=== PATIENT | female | born 1970 | race African-American/Black ===

== ENCOUNTER 2016-03-25 01:23 | Inpatient (IN) ==
[2016-03-25] MEDS ORDERED: METOCLOPRAMIDE 10 MG/2 ML VIAL IV STA (02:10)
[2016-03-25] MEDS ORDERED: ALUM/MAG/SIMETH/LIDO VISC 1:1 30 ML BOTTLE PO STA (02:10)
[2016-03-25] MEDS ORDERED: ONDANSETRON 4 MG/2 ML VIAL IV STA (02:10)
[2016-03-25] MEDS ORDERED: PANTOPRAZOLE 40 MG VIAL IV STA (02:10)
[2016-03-25] MEDS ORDERED: SODIUM CHLORIDE 0.9% 1,000 ML IV STA ×2 (02:10→03:00)
[2016-03-25] MEDS ORDERED: PANTOPRAZOLE 40 MG VIAL IV ONE (02:17)
[2016-03-25] MEDS ORDERED: ONDANSETRON 4 MG/2 ML VIAL ONE (02:17)
[2016-03-25] MEDS ORDERED: METOCLOPRAMIDE 10 MG/2 ML VIAL ONE (02:17)
[2016-03-25] MEDS ORDERED: ALUM/MAG/SIMETH/LIDO VISC 1:1 30 ML BOTTLE PO ONE (02:17)
--- NOTE | 2016-03-25 02:27 | EKG Report ---
Stationary ECG Study [facility] ER Test Date: 03/25/2016 2:25:37 AM Pat Name: CHAPINCITO ZAMARRIPA Department: Room: Gender: F Transportation Superintendent: : 1970 Requested by: Johan Mccormack Order Number: [id number] Re MD: SERA GEORGES Intervals [place] Rate: 58 P: 55 MI: 176 QRS: 0 QRSD: 130 T: 31 QT: 475 QTc: 473 Interpretive Statements SINUS RHYTHM NON-SPECIFIC INTRAVENTRICULAR CONDUCTION DELAY MODERATE VOLTAGE CRITERIA FOR LVH, CONSIDER NORMAL VARIANT PROLONGED QT INTERVAL Electronically Signed On 03-25-16 04:23:31 BACK LINE COOK by SERA GEORGES [email or web address]
[2016-03-25 02:29] LABS: Basophils % 0.1 % (0.0-0.8); Eosinophils # 0.2 10*3/uL (0.0-0.87); Eosinophils % 1.9 % (0.00-10.9); Hematocrit 28.8 VOL% (35.7-47.0); Hemoglobin 10.2 GM/DL (12.0-16.0); Immature Granulocytes % 1.9 %; Immature Granulocytes Absolute 0.24 #; Lymphocytes # 3.2 10*3/uL (1.4-4.0); Lymphocytes % 25.5 % (21.3-54.2); Mean Corpuscular HGB Conc 35.4 GM/DL (32-36); Mean Corpuscular Hemoglobin 33 PG (27-34); Mean Corpuscular Volume 94.1 FL (87-102); Mean Platelet Volume 9.9 FL (9.6-12.0); Monocytes # 0.4 10*3/uL (0.11-0.8); Monocytes % 3.5 % (1.7-12.7); NRBC # 0.05 10*3/uL; Neutrophils # 8.4 10*3/uL (1.4-7.4); Neutrophils % 67.1 % (38.7-73.9); Platelet Count 296 10*3/uL (130-400); Red Blood Count 3.06 10*6/uL (3.8-5.5); Red Cell Distribution Width 18.6 % (9.3-17.3); White Blood Count 12.5 10*3/uL (4.5-13.71)
--- NOTE | 2016-03-25 02:44 | Emergency Department Note ---
Yg Boyd Emily, am scribing for, and in the presence of, Johan Wiley MD 02: 15. Inez Boyd Charles R, MD, personally performed the services described in this documentation, ascribed by Ethel Ronquillo in my presence, and it is both accurate and complete . Arrival - Arrival Chief Complaint: Nausea/Vomiting/Diarrhea Stated Complaint: WEAK/NAUSEA/VOMITING ED Nursing Triage Note: pt present to triage via w/c with N/V and weakness for more than a week. pt denies fever and diarrhea and abd pain. Mode of Arrival: Wheelchair Limitations: No Limitations Source: Patient, Significant other - History of Present Illness HPI Narrative: Pt is a 45 y/o female who came to ED with c/o N/V and abdomen pain that has been ongoing for a month. Pt reports not able to keep any food or fluid down every time small meal or particle of food she eats. Pt describes abdomen pain as "funny feeling" and is poor historian. Spouse notes she has hx of seizures, in which last grandmal was in September 2015 and medications were adjusted. PMHx of depression and potassium deficiency. PCP is Dr. Barriga but has not followed up regularly. No other complaint/pain in ED. Onset (ago): week(s) Consistency: constant Severity: mild Severity scale (1-10): 2 Quality: aching Date of Last Menstrual Period: hyst Allergies/Adverse Reactions: Allergies Allergy/AdvReac Type Severity Reaction Status Date / Time nitrofurantoin Allergy RASH Verified 03/25/16 01:33 [From Macrobid] Home Medications: Home Medications Medication Instructions Recorded Confirmed Type ARIPiprazole [Abilify] 7.5 mg PO BEDTIME 03/25/16 03/25/16 History Lisinopril [Zestril] 40 mg PO DAILY 03/25/16 03/25/16 History Potassium Chloride [Klor-Con M20] 20 meq PO BID 03/25/16 03/25/16 History Sertraline [Zoloft] 25 mg PO DAILY 03/25/16 03/25/16 History clonazePAM [Clonazepam] 0.5 mg PO BID 03/25/16 03/25/16 History hydroCHLOROthiazide 25 mg PO DAILY 03/25/16 03/25/16 History [Hydrochlorothiazide] levETIRAcetam TAB [Keppra Tab] 500 mg PO BID 03/25/16 03/25/16 History traZODone [Desyrel] 150 mg PO BEDTIME 03/25/16 03/25/16 History Review of System - Review of System 12 point system: reviewed and no additional remarkable complaints except as stated - Review of System Constitutional: Present: weakness. Absent: chills, fever Head/Ears/Nose/Throat: Absent: nasal drainage, sore throat Respiratory: Absent: respiratory distress Cardiovascular: Absent: chest pain Gastrointestinal: Present: abdominal pain, nausea, vomiting (with every meal). Absent: diarrhea Musculoskeletal: Absent: arm pain, back pain, leg pain, neck pain Medical,Surgical,& Family Hx - Medical History Cardio: History of: Hypertension Neurology: History of: Seizures - Surgical History Reproductive Surgeries: Surgical HX of;: Hysterectomy - Social History Smoking Status: Never smoker Frequency of Alcohol Use: None Type of Drug Use: None Exam Vital Signs: Vital Signs Temperature 97.7 F 03/25/16 01:26 Pulse Rate 64 03/25/16 01:26 Respiratory Rate 16 03/25/16 01:26 Blood Pressure 153/100 03/25/16 01:26 O2 Sat by Pulse Oximetry 100 03/25/16 01:26 - General General appearance: alert, in no apparent distress - Head Head exam: Present: atraumatic, normocephalic - Eye Eye exam: Present: PERRL, EOMI - ENT ENT exam: Present: mucous membranes moist. Absent: mucous membranes dry - Neck Neck exam: Present: full ROM. Absent: tenderness - Chest Chest inspection: Present: symmetric chest wall rise. Absent: tenderness - Respiratory Respiratory exam: Present: normal lung sounds bilaterally. Absent: respiratory distress - Cardiovascular Cardiovascular exam: Present: regular rate, normal rhythm, normal heart sounds - Abdominal Exam Abdominal exam: Present: soft, tenderness (mild epigastric), hypoactive bowel sounds. Absent: distention, guarding, rebound - Extremities Exam Extremities exam: Present: full ROM. Absent: tenderness, pedal edema - Back Exam Back exam: Present: full ROM. Absent: tenderness - Neurological Exam Neurological exam: Present: alert, oriented X3, CN II-XII intact. Absent: motor sensory deficit - Psychiatric Psychiatric exam: Present: normal affect, normal mood - Skin Skin exam: Present: warm, dry Course - Consultations Consultation #1: Dr. Callejas will admit patient Time: 03:11 Results - Labs CBC & BMP: 03/25/16 01:43 03/25/16 01:43 Lab Results: I have reviewed the patients labs Labs: Laboratory Tests 03/25/16 01:43 RBC 3.06 L Hgb 10.2 L Hct 28.8 L RDW 18.6 H Neut # (Auto) 8.4 H Critical Care Time Critical Care Time: Yes Total Critical Care Time: 60 Disposition Clinical Impression: Gastroenteritis, Dehydration, Hypokalemia due to inadequate potassium intake, Intractable nausea and vomiting Case discussed with: patient, patient's family Disposition: Still a Patient Condition: Stable Time of Disposition: 03:11
[2016-03-25 02:46] LABS: Albumin 3.6 G/DL (3.4-5.0); Alkaline Phosphatase 100 U/L (45-117); Aspartate Amino Transferase 19 U/L (0-37); Calcium 8.8 MG/DL (8.5-10.1); Total Protein 7.5 G/DL (6.4-8.3)
[2016-03-25 02:47] LABS: Amylase 51 U/L (25-115); Blood Urea Nitrogen 9 MG/DL (7-18); Glucose 98 MG/DL (74-106); Magnesium 1.9 MG/DL (1.8-2.4); Osmolality,Calculated 288.6 MOS/KG (273-304); Potassium 2.3 MMOL/L (3.5-5.1); Sodium 146 MMOL/L (136-145); Troponin I Only < 0.015 NG/ML (0.00-0.045)
[2016-03-25 02:53] LABS: Alanine Aminotransferase 12 U/L (13-56)
[2016-03-25] MEDS ORDERED: POTASSIUM CHLORIDE 20 MEQ TABLET PO STA ×2 (02:57)
[2016-03-25] MEDS ORDERED: POTASSIUM CHLORIDE 20 MEQ PACK ONE (03:00)
[2016-03-25] MEDS ORDERED: SODIUM CHLOR 0.9% KCL 20 MEQ 20 MEQ/1,000 ML BAG IV SCH ×2 (03:00→05:16)
[2016-03-25] MEDS ORDERED: POTASSIUM CHLORIDE 20 MEQ TABLET PO ONE (03:01)
[2016-03-25] MEDS ORDERED: SODIUM CHLOR 0.9% KCL 20 MEQ 20 MEQ/1,000 ML BAG IV ONE (03:04)
--- NOTE | 2016-03-25 03:26 | Hospitalist History & Physical ---
Assessment and Plan (1) Hypokalemia due to loss of potassium Status: Acute Current Visit: Yes (2) Dehydration Status: Acute Current Visit: Yes (3) Gastroenteritis Status: Acute Current Visit: Yes (4) Intractable nausea and vomiting Status: Acute Assessment and plan: Our plan for this patient #1 admit the patient our service #2 replete her potassium #3 consult GI #4 continue her home medications as appropriate #5 check a potassium in 4 hours Current Visit: Yes History of Present Illness Chief complaint: intractable nausea and vomiting History of present illness: Ms. Cortes is a 45 year old female who presents to our hospital with nausea and vomiting 3 weeks. Patient said prior to that 3 weeks ago she did not have this problem. Her 's report that it started after she ate something over her mother's house he could eat anything down. Patient was noted today and has been urged her that she needed to come to the hospital. Patient has a issue with hypokalemia in the past and is on potassium supplements. She was found to be severely hypokalemic in the emergency room. Patient reports that she can swallow some liquids in small bites of food that when she tries normal portions they come right back up. She has a funny sensation in her epigastric area although is really not significantly tender. Home Medications Medication Instructions Recorded Confirmed Type ARIPiprazole [Abilify] 7.5 mg PO BEDTIME 03/25/16 03/25/16 History Lisinopril [Zestril] 40 mg PO DAILY 03/25/16 03/25/16 History Potassium Chloride [Klor-Con M20] 20 meq PO BID 03/25/16 03/25/16 History Sertraline [Zoloft] 25 mg PO DAILY 03/25/16 03/25/16 History clonazePAM [Clonazepam] 0.5 mg PO BID 03/25/16 03/25/16 History hydroCHLOROthiazide 25 mg PO DAILY 03/25/16 03/25/16 History [Hydrochlorothiazide] levETIRAcetam TAB [Keppra Tab] 500 mg PO BID 03/25/16 03/25/16 History traZODone [Desyrel] 150 mg PO BEDTIME 03/25/16 03/25/16 History Allergies Allergy/AdvReac Type Severity Reaction Status Date / Time nitrofurantoin Allergy RASH Verified 03/25/16 01:33 [From Macrobid] Medical,Surgical,& Family Hx - Medical History Cardio: History of: Hypertension Neurology: History of: Seizures - Surgical History Reproductive Surgeries: Surgical HX of;: Hysterectomy - Family History Family History: noncontributory - Social History Smoking Status: Never smoker Frequency of Alcohol Use: None Type of Drug Use: None 12 point system: reviewed and no additional remarkable complaints except as stated Exam - Constitutional Vitals: Period Temp Pulse Resp BP Sys/Richardson Pulse Ox Last 24 Hr 97.7 F 64 16 153/100 100 - General General appearance: alert, in no apparent distress - Head Head exam: Present: atraumatic, normocephalic - Eye Eye exam: Present: PERRL, EOMI - ENT ENT exam: Present: mucous membranes moist. Absent: mucous membranes dry - Neck Neck exam: Present: full ROM. Absent: tenderness - Chest Chest inspection: Present: symmetric chest wall rise. Absent: tenderness - Respiratory Respiratory exam: Present: normal lung sounds bilaterally. Absent: respiratory distress - Cardiovascular Cardiovascular exam: Present: regular rate, normal rhythm, normal heart sounds - Abdominal Exam Abdominal exam: Present: soft, tenderness (mild epigastric), hypoactive bowel sounds. Absent: distention, guarding, rebound - Extremities Exam Extremities exam: Present: full ROM. Absent: tenderness, pedal edema - Back Exam Back exam: Present: full ROM. Absent: tenderness - Neurological Exam Neurological exam: Present: alert, oriented X3, CN II-XII intact. Absent: motor sensory deficit - Psychiatric Psychiatric exam: Present: normal affect, normal mood - Skin Skin exam: Present: warm, dry Results - Labs CBC & BMP: 03/25/16 01:43 03/25/16 01:43
[2016-03-25 03:43] LABS: Apearance,Urine CLEAR (Clear); Bilirubin,Urine Negative (Negative); Blood, Urine Negative (Negative); Glucose,Urine (UA) Negative (Negative); Ketones,Urine Negative (Negative); Mucus,Urine Occasional /LPF (Occasional); Nitrite,Urine Negative (Negative); Protein,Urine Negative; Squamous Epithelial Cell,Urine Occasional /HPF (0-10); Urine Color Yellow (Yellow); Urine Specific Gravity 1.006 (1.001-1.035); Urine Urobilinogen < 2.0 EU/DL (0.2-1.0); WBC,Urine <1 /HPF (0-6)
[2016-03-25] MEDS ORDERED: MORPHINE 2 MG/1 ML SYRINGE IV PRN (05:16)
[2016-03-25] MEDS ORDERED: PROMETHAZINE 25 MG/1 ML VIAL IM PRN (05:16)
--- NOTE | 2016-03-25 07:37 | XRay Report ---
XR chest 1V portable Indication: Abdominal pain. Comparison: None. Technique: Portable AP chest was performed. Findings: Heart size, mediastinal contour, and hilar structures demonstrate no evidence of acute pathology. Lungs are clear. Bones and soft tissues demonstrate no evidence of acute pathology. Impression: 1. No evidence of acute pathology. 03/25/2016 7:34 AM PROCEDURE INTERPRETED AT [facility] DEPARTMENT OF RADIOLOGY Final Report Signed by: Dr. Dell Rios
--- NOTE | 2016-03-25 07:37 | XRay Report ---
XR abdomen 2V Indication: Abdominal pain. Comparison: None. Technique: Flat and erect images of the abdomen were performed. Findings: Lung bases are clear. No organomegaly suggested. The bowel gas pattern demonstrates no significant abnormality. Bony structures as well as soft tissues demonstrate no evidence of significant pathology. Impression: 1. No active process is suggested within the abdomen or pelvis. 03/25/2016 7:34 AM PROCEDURE INTERPRETED AT [facility] [place] DEPARTMENT OF RADIOLOGY Final Report Signed by: Dr. Dell Rios
[2016-03-25] MEDS: levETIRAcetam 500 MG TABLET PO SCH ×2 (08:33→21:31)
[2016-03-25] MEDS: LISINOPRIL 20 MG TABLET PO SCH (08:33)
[2016-03-25] MEDS: SERTRALINE 25 MG TABLET PO SCH (08:33)
[2016-03-25] MEDS: clonazePAM 0.5 MG TABLET PO SCH ×2 (08:38→21:31)
[2016-03-25] MEDS ORDERED: PANTOPRAZOLE 40 MG TABLET PO SCH (09:00)
[2016-03-25] MEDS ORDERED: POTASSIUM CHLORIDE 20 MEQ TABLET PO SCH (09:00)
[2016-03-25] MEDS ORDERED: hydroCHLOROthiazide 25 MG TABLET PO SCH (09:00)
[2016-03-25] MEDS ORDERED: METOCLOPRAMIDE 10 MG/2 ML VIAL IV PRN (10:46)
--- NOTE | 2016-03-25 10:50 | Hospitalist Progress Note ---
Assessment and Plan (1) Dehydration Status: Acute Assessment and plan: Continue IV fluids. Changed to lactated Ringer's. Current Visit: Yes (2) Intractable nausea and vomiting Status: Acute Assessment and plan: GI consult pending Add reglan Current Visit: Yes (3) Hypokalemia due to loss of potassium Status: Acute Assessment and plan: increase KCL supplement Current Visit: Yes Hospitalist: Subjective Interval history: Patient seen and examined this morning. Reports no more vomiting but has some nausea. Awaiting GI consultation. IV fluids and potassium supplements adjusted. Exam - Constitutional Vitals: Period Temp Pulse Resp BP Sys/Richardson Pulse Ox Last 24 Hr 98.6 F-98.8 F 53-57 18-20 153-168/77-104 99-100 General appearance: mild distress - Head Head exam: Present: normal inspection, normocephalic - Eye Eye exam: Present: EOMI Pupils: Present: ALLA - Respiratory Respiratory exam: Present: clear to auscultation bilaterally - Cardiovascular Cardiovascular exam: Present: regular rate and rhythm - GI/Abdominal GI/Abdominal exam: Present: normal bowel sounds, soft - Extremities Exam Extremities exam: Present: normal inspection. Absent: edema - Neurological Exam Neurological exam: Present: alert, oriented X3 - Psychiatric Psychiatric exam: Present: normal affect, normal mood - Skin Skin exam: Present: normal color, warm Results - Labs CBC & BMP: 03/25/16 01:43 03/25/16 06:58 Lab Results: I have reviewed the past 24 hour labs Specialty Discharge - Follow Up or Referrals - Discharge Medications No Action ARIPiprazole [Abilify] 7.5 mg PO BEDTIME traZODone [Desyrel] 150 mg PO BEDTIME levETIRAcetam TAB [Keppra Tab] 500 mg PO BID clonazePAM [Clonazepam] 0.5 mg PO BID Sertraline [Zoloft] 25 mg PO DAILY Potassium Chloride [Klor-Con M20] 20 meq PO BID hydroCHLOROthiazide [Hydrochlorothiazide] 25 mg PO DAILY Lisinopril [Zestril] 40 mg PO DAILY
[2016-03-25] MEDS ORDERED: POTASSIUM CHLORIDE INJ 20 MEQ in LACTATED RINGERS 1,000 ML IV SCH (11:00)
[2016-03-25] MEDS ORDERED: LACTATED RINGERS 1,000 ML IV SCH (13:00)
[2016-03-25] MEDS: POTASSIUM CHLORIDE INJ 20 MEQ in LACTATED RINGERS 1,000 ML IV SCH ×2 (14:50→21:57)
--- NOTE | 2016-03-25 15:18 | Gastrointestinal Consult Note ---
Assessment and Plan (1) Nausea and vomiting Status: Acute Assessment and plan: Nausea and vomiting may be secondary to irritation of the stomach with a previous potassium usage causing a mild gastritis. The patient does not desire any sort of endoscopic evaluation for this nor is she wish to have further evaluation with gastric emptying study look for Astra paresis. She would like some MiraLAX to help out with her chronic constipation and this may also be feeding into the nausea and vomiting. We will start the patient on Protonix 40 mg prior to suppertime in addition to MiraLAX one capful twice daily and see what this does for her underlying symptoms. She can be discharged home at any time in my opinion. Current Visit: Yes (2) Chronic constipation Status: Acute Assessment and plan: Patient states that she has 1 bowel movement every 2 weeks. Strongly suggest using MiraLAX on a daily basis, in addition to a high-fiber diet. She could be considered for a colonoscopy if she desires this in the future at any time. Current Visit: Yes (3) Gastroenteritis Status: Acute Assessment and plan: This patient seems to have a gastroenteritis by history perhaps in reaction to her mother's food exacerbated by her underlying constipation as well. No specific treatment other than rehydration and correction of her low potassium is required. Current Visit: Yes History of Present Illness Chief complaint: nausea and vomiting, hypokalemia, chronic constipation History of present illness: Ms. Cortes is a 45 year old female who gets most of her care over at [facility] and has a history of panic disorder and chronic depression as well as seizure disorder and follows up with Dr. Narvaez. She is chronically constipated and has 1 bowel movement every 2 weeks at times. She has been having problems with hypokalemia but states that she has only had nausea and vomiting this admission that this is not typical for her. He has not had any further nausea and vomiting observed here. She states that this happened after eating some food over her mother's house but that this is been going on for the last 3 weeks by report. She is not having any epigastric tenderness and is not having any fevers or chills. He is being treated mostly over [facility] but to this developing hypokalemia requiring hospitalizations and decided to give [facility] an opportunity to fix the problem. She does not have significant heartburn she has not noticed bright red blood per rectum or black tarry bowel movements. Home Medications Medication Instructions Recorded Confirmed Type ARIPiprazole [Abilify] 7.5 mg PO BEDTIME 03/25/16 03/25/16 History Lisinopril [Zestril] 40 mg PO DAILY 03/25/16 03/25/16 History Potassium Chloride [Klor-Con M20] 20 meq PO BID 03/25/16 03/25/16 History Sertraline [Zoloft] 25 mg PO DAILY 03/25/16 03/25/16 History clonazePAM [Clonazepam] 0.5 mg PO BID 03/25/16 03/25/16 History hydroCHLOROthiazide 25 mg PO DAILY 03/25/16 03/25/16 History [Hydrochlorothiazide] levETIRAcetam TAB [Keppra Tab] 500 mg PO BID 03/25/16 03/25/16 History traZODone [Desyrel] 150 mg PO BEDTIME 03/25/16 03/25/16 History Allergies Allergy/AdvReac Type Severity Reaction Status Date / Time nitrofurantoin Allergy RASH Verified 03/25/16 01:33 [From Macrobid] Medical,Surgical,& Family Hx - Medical History Cardio: History of: Hypertension Psychological: History of: Anxiety Disorders Neurology: History of: Seizures - Surgical History Abdominal Surgeries: Patient denies: Abdominal Surgery Reproductive Surgeries: Surgical HX of;: Hysterectomy - Family History Family History: Reports;: Family Diabetes (mom), Family Heart Disease (mom), Family Hypertension (mom) - Social History Smoking Status: Never smoker Frequency of Alcohol Use: None Type of Drug Use: None Review of systems: Constitutional: Denies fever, chills, but admits to recent nausea, and vomiting Eyes: Denies dry eyes, and scleral icterus HENT: Denies headaches Cardiovascular: Denies acute chest pain and claudication Respiratory: Denies shortness of breath, wheezing, and difficulty breathing, denies cough Gastrointestinal: As noted in the HPI Genitourinary: Denies dysuria and hematuria Neurologic: Denies vision loss, and loss of sensation Musculoskeletal: Denies joint swelling, joint stiffness, and muscular weakness Psychiatric: She does have depression and panic disorder but no francisco symptoms Heme-Lymph: Denies easy bruising, lymph node enlargement or tenderness, night sweats, excessive bleeding Allergies-immunologic: Denies pruritus and rhinorrhea Exam - Constitutional Vitals: Period Temp Pulse Resp BP Sys/Richardson Pulse Ox Last 24 Hr 97.4 F-98.8 F 53-57 18-20 153-168/77-104 96-100 General appearance: normal weight, no acute distress Exam: Constitutional: Well-developed, well-nourished, alert, and in no acute distress Head and face: Head: Normocephalic atraumatic Eyes: Conjunctiva without injection, no gross scleral icterus, pupils equal and round bilaterally Ears: Intact to conversation in both ears Nose: External appearance is normal, nares patent Mouth: Oral mucous membranes moist without erythema dentition noted to be without erosion Neck: Normal appearance, no masses or tenderness, trachea midline Thyroid: Gland midline and appropriate size for age Respiratory: Normal respiratory effort, clear to auscultation without wheezes, rhonchi or rales Cardiovascular: Regular rate and rhythm, normal S1, S2, the exam is without rubs, murmurs or gallops. Gastrointestinal: Nontender to palpation, normal active bowel sounds, tone normal without rigidity or guarding, no masses present, no hepatomegaly, no spleen tip felt. No rectal exam obtained. Lymphatic: Neck without adenopathy, axilla without lymphadenopathy present Musculoskeletal: Right and left lower extremities without evidence of edema Skin and subcutaneous tissue: No rashes or ulcerations noted, normal skin turgor, digits and nails without clubbing/cyanosis/deformities. Neurologic: The patient is grossly oriented to person place and time, cranial nerves show tongue movements are normal with normal tongue extrusion midline, light touch sensation is intact. Psychiatric: No hallucinations or delusions are present, does not appear depressed Results - Labs CBC & BMP: 03/25/16 01:43 03/25/16 06:58 Specialty Discharge - Follow Up or Referrals - Discharge Medications No Action ARIPiprazole [Abilify] 7.5 mg PO BEDTIME traZODone [Desyrel] 150 mg PO BEDTIME levETIRAcetam TAB [Keppra Tab] 500 mg PO BID clonazePAM [Clonazepam] 0.5 mg PO BID Sertraline [Zoloft] 25 mg PO DAILY Potassium Chloride [Klor-Con M20] 20 meq PO BID hydroCHLOROthiazide [Hydrochlorothiazide] 25 mg PO DAILY Lisinopril [Zestril] 40 mg PO DAILY
[2016-03-25] MEDS: ONDANSETRON 4 MG/2 ML VIAL IV PRN (19:46)
[2016-03-25] MEDS ORDERED: ARIPiprazole 15 MG TABLET PO SCH (21:00)
[2016-03-25] MEDS ORDERED: OXYTOCIN/LR 20 UNIT/1,000 ML BAG IV SCH (21:06)
[2016-03-25] MEDS: traZODone 50 MG TABLET PO SCH (21:30)
[2016-03-25] MEDS: POTASSIUM CHLORIDE 20 MEQ TABLET PO SCH (21:32)
[2016-03-25] MEDS: POLYETHYLENE GLYCOL POWDER 17 GM PACK PO SCH (21:39)
[2016-03-26] MEDS: ONDANSETRON 4 MG/2 ML VIAL IV PRN (02:44)
[2016-03-26 05:40] LABS: Basophils % 0.1 % (0.0-0.8); Eosinophils # 0.2 10*3/uL (0.0-0.87); Hematocrit 25.6 VOL% (35.7-47.0); Hemoglobin 8.8 GM/DL (12.0-16.0); Immature Granulocytes % 1.6 %; Immature Granulocytes Absolute 0.15 #; Lymphocytes # 2.6 10*3/uL (1.4-4.0); Lymphocytes % 28.5 % (21.3-54.2); Mean Corpuscular HGB Conc 34.4 GM/DL (32-36); Mean Corpuscular Hemoglobin 33 PG (27-34); Mean Corpuscular Volume 96.6 FL (87-102); Mean Platelet Volume 10.1 FL (9.6-12.0); Monocytes # 0.4 10*3/uL (0.11-0.8); Monocytes % 3.9 % (1.7-12.7); NRBC # 0.02 10*3/uL; Neutrophils # 5.9 10*3/uL (1.4-7.4); Neutrophils % 63.9 % (38.7-73.9); Platelet Count 237 10*3/uL (130-400); Red Blood Count 2.65 10*6/uL (3.8-5.5); White Blood Count 9.2 10*3/uL (4.5-13.71)
[2016-03-26] MEDS: POTASSIUM CHLORIDE INJ 20 MEQ in LACTATED RINGERS 1,000 ML IV SCH ×3 (05:45→21:09)
[2016-03-26 06:09] LABS: Albumin 3.2 G/DL (3.4-5.0); Magnesium 1.7 MG/DL (1.8-2.4); Osmolality,Calculated 298.7 MOS/KG (273-304); Potassium 2.8 MMOL/L (3.5-5.1); Total Protein 6.1 G/DL (6.4-8.3)
[2016-03-26] MEDS ORDERED: MAGNESIUM SULF RIDER 2 GM in PREMIX 1 EACH IV ONE (07:41)
[2016-03-26] MEDS: levETIRAcetam 500 MG TABLET PO SCH ×2 (09:51→21:05)
[2016-03-26] MEDS: PANTOPRAZOLE 40 MG TABLET PO SCH ×2 (09:52→21:05)
[2016-03-26] MEDS: ARIPiprazole 15 MG TABLET PO SCH (09:52)
[2016-03-26] MEDS: POTASSIUM CHLORIDE 20 MEQ TABLET PO SCH ×2 (09:53→21:05)
[2016-03-26] MEDS: POLYETHYLENE GLYCOL POWDER 17 GM PACK PO SCH ×2 (09:53→21:03)
[2016-03-26] MEDS: SERTRALINE 25 MG TABLET PO SCH (09:53)
[2016-03-26] MEDS: LISINOPRIL 20 MG TABLET PO SCH (09:53)
[2016-03-26] MEDS: clonazePAM 0.5 MG TABLET PO SCH ×2 (09:54→21:05)
--- NOTE | 2016-03-26 11:40 | Hospitalist Progress Note ---
Assessment and Plan (1) Dehydration Status: Acute Assessment and plan: Continue IV fluids. Changed to lactated Ringer's. Current Visit: Yes (2) Intractable nausea and vomiting Status: Acute Assessment and plan: GI consult reviewed. patient refused intervention. reglan continued. No further episodes of vomiting today. Current Visit: Yes (3) Hypokalemia due to loss of potassium Status: Acute Assessment and plan: increase KCL supplement Current Visit: Yes Hospitalist: Subjective Interval history: Patient seen and examined. GI consult reviewed. Case discussed with the patient regarding the need for endoscopy. She is afraid undergo the procedure and has elected not to. Her potassium is still low this morning despite no further nausea or vomiting. IV potassium supplementation as well as oral supplementation has been ordered. Repeat labs ordered for tomorrow. She does look better and should be able to go home tomorrow. Exam - Constitutional Vitals: Period Temp Pulse Resp BP Sys/Richardson Pulse Ox Last 24 Hr 98.3 F-98.6 F 56-62 18-24 130-179/71-93 99-100 General appearance: no acute distress - Head Head exam: Present: normal inspection, normocephalic, atraumatic - Eye Eye exam: Present: EOMI Pupils: Present: ALLA - Respiratory Respiratory exam: Present: clear to auscultation bilaterally - Cardiovascular Cardiovascular exam: Present: regular rate and rhythm - GI/Abdominal GI/Abdominal exam: Present: normal bowel sounds, soft. Absent: tenderness, rebound - Extremities Exam Extremities exam: Absent: edema - Neurological Exam Neurological exam: Present: alert, oriented X3 - Psychiatric Psychiatric exam: Present: normal affect, normal mood - Skin Skin exam: Present: normal color, warm, dry Results - Labs CBC & BMP: 03/26/16 05:06 03/26/16 05:06 Lab Results: I have reviewed the past 24 hour labs Specialty Discharge - Follow Up or Referrals - Discharge Medications No Action ARIPiprazole [Abilify] 7.5 mg PO BEDTIME traZODone [Desyrel] 150 mg PO BEDTIME levETIRAcetam TAB [Keppra Tab] 500 mg PO BID clonazePAM [Clonazepam] 0.5 mg PO BID Sertraline [Zoloft] 25 mg PO DAILY Potassium Chloride [Klor-Con M20] 20 meq PO BID hydroCHLOROthiazide [Hydrochlorothiazide] 25 mg PO DAILY Lisinopril [Zestril] 40 mg PO DAILY
[2016-03-26] MEDS: POTASSIUM CHLORIDE RIDER 10 MEQ in PREMIX 1 EACH IV SCH ×4 (12:32→16:28)
--- NOTE | 2016-03-26 16:06 | Gastrointestinal Progress Note ---
Assessment and Plan (1) Nausea and vomiting Status: Acute Assessment and plan: Nausea and vomiting may be secondary to irritation of the stomach with a previous potassium usage causing a mild gastritis. The patient does not desire any sort of endoscopic evaluation for this nor is she wish to have further evaluation with gastric emptying study look for Astra paresis. She would like some MiraLAX to help out with her chronic constipation and this may also be feeding into the nausea and vomiting. We will start the patient on Protonix 40 mg prior to suppertime in addition to MiraLAX one capful twice daily and see what this does for her underlying symptoms. She can be discharged home at any time in my opinion. 03/26/16-- patient now having bowel movements more frequently, 2 yesterday. She is taking her MiraLAX and her oral potassium as well as IV potassium. She is still refusing further workup with endoscopy or and/or gastric emptying study as appropriate. We did discuss the fact that people usually get evaluation when they come into the hospital, but she does not want to pursue endoscopic and /or further radiologic evaluation. I think the acid blocking medication will help with her underlying reflux and the MiraLAX 3 times a day should help out with her underlying constipation issues. I think she could likely be discharged at this time. I will sign off of the case as there is not much more for me to add Current Visit: Yes (2) Chronic constipation Status: Acute Assessment and plan: Patient states that she has 1 bowel movement every 2 weeks. Strongly suggest using MiraLAX on a daily basis, in addition to a high-fiber diet. She could be considered for a colonoscopy if she desires this in the future at any time. 03/26/16-- she states that the MiraLAX is already working and is ready to continue this at home. If her potassium was adequate she should be able to leave tomorrow on oral potassium, just use of daily Protonix and MiraLAX as per her hospital regimen. Thank you for this interesting consult good luck with this somewhat noncompliant young lady. Current Visit: Yes (3) Gastroenteritis Status: Acute Assessment and plan: This patient seems to have a gastroenteritis by history perhaps in reaction to her mother's food exacerbated by her underlying constipation as well. No specific treatment other than rehydration and correction of her low potassium is required. 03/26/16--see above. Current Visit: Yes Gastroenterology - PN: Subj Interval history: Eating well, 2 bowel movements yesterday, potassium is up but not to target ( above 3.0). Exam (Progress Note) - Constitutional Vitals: Period Temp Pulse Resp BP Sys/Richardson Pulse Ox Last 24 Hr 97.9 F-98.6 F 56-62 18-24 124-179/71-93 99-100 General appearance: no acute distress - Head Head exam: Present: normocephalic - Eye Eye exam: Present: EOMI - Respiratory Respiratory exam: Present: clear to auscultation bilaterally. Absent: rhonchi, stridor, wheezes - Cardiovascular Cardiovascular exam: Present: regular rate and rhythm - GI/Abdominal GI/Abdominal exam: Present: normal bowel sounds, soft. Absent: distended, guarding, tenderness, rebound - Extremities Exam Extremities exam: Present: normal inspection - Neurological Exam Neurological exam: Present: alert, oriented X3, CN II-XII intact. Absent: motor sensory deficit - Psychiatric Psychiatric exam: Present: normal affect, normal mood - Skin Skin exam: Present: warm Results - Labs CBC & BMP: 03/26/16 05:06 03/26/16 05:06 Specialty Discharge - Follow Up or Referrals - Discharge Medications No Action ARIPiprazole [Abilify] 7.5 mg PO BEDTIME traZODone [Desyrel] 150 mg PO BEDTIME levETIRAcetam TAB [Keppra Tab] 500 mg PO BID clonazePAM [Clonazepam] 0.5 mg PO BID Sertraline [Zoloft] 25 mg PO DAILY Potassium Chloride [Klor-Con M20] 20 meq PO BID hydroCHLOROthiazide [Hydrochlorothiazide] 25 mg PO DAILY Lisinopril [Zestril] 40 mg PO DAILY
[2016-03-26] MEDS: traZODone 50 MG TABLET PO SCH (21:05)
[2016-03-27 05:55] LABS: Magnesium 2.1 MG/DL (1.8-2.4); Osmolality,Calculated 297.7 MOS/KG (273-304); Potassium 2.7 MMOL/L (3.5-5.1)
[2016-03-27] MEDS: POTASSIUM CHLORIDE INJ 20 MEQ in LACTATED RINGERS 1,000 ML IV SCH ×2 (06:01→13:35)
[2016-03-27] MEDS: PANTOPRAZOLE 40 MG TABLET PO SCH (08:52)
[2016-03-27] MEDS: levETIRAcetam 500 MG TABLET PO SCH (08:52)
[2016-03-27] MEDS: POLYETHYLENE GLYCOL POWDER 17 GM PACK PO SCH (08:52)
[2016-03-27] MEDS: ARIPiprazole 15 MG TABLET PO SCH (08:52)
[2016-03-27] MEDS: POTASSIUM CHLORIDE 20 MEQ TABLET PO SCH (08:52)
[2016-03-27] MEDS: clonazePAM 0.5 MG TABLET PO SCH (08:53)
[2016-03-27] MEDS: SERTRALINE 25 MG TABLET PO SCH (08:53)
[2016-03-27] MEDS: LISINOPRIL 20 MG TABLET PO SCH (08:53)
--- NOTE | 2016-03-27 09:11 | Discharge Summary ---
Hospital Course - Hospital Course Hospital Course: Mrs. Melendez is a 45-year-old -[place] female who is admitted to the hospital with intractable nausea vomiting and hypokalemia. Her symptoms began several weeks ago. Her symptoms persisted causing her to come to the emergency department for further evaluation. She has a history of hypokalemia and is on chronic potassium supplementation. She presented with signs and symptoms of gastritis. It's unclear what started this nausea and vomiting episode. Ultimately the patient was unable to keep food down and had severe hypokalemia. She is admitted to the hospital and seen in consultation by gastroenterology. She declined to have endoscopy performed during this hospitalization. She received IV fluid hydration and feels much better. She's had no more nausea and vomiting during the course of hospitalization. Potassium has been difficult to replace. She was on hydrochlorothiazide at home which has been discontinued and should not be restarted upon discharge. She's received copious amounts of IV fluid hydration as well as IV and oral potassium supplements. She'll be discharged home on potassium 40 mEq twice daily as well as Protonix to treat gastritis. She was advised to return to the hospital or seek GI consultation as an outpatient for upper endoscopy if her symptoms persist or return. - Time spent with patient Time with patient DS: Greater than 30 minutes Diagnosis - Discharge Diagnosis (1) Dehydration Status: Acute (2) Intractable nausea and vomiting Status: Acute (3) Hypokalemia due to loss of potassium Status: Acute (4) Gastroenteritis Status: Acute (5) Nausea and vomiting Status: Resolved (6) Chronic constipation Status: Chronic Specialty Discharge - Follow Up or Referrals - Discharge Medications No Action ARIPiprazole [Abilify] 7.5 mg PO BEDTIME traZODone [Desyrel] 150 mg PO BEDTIME levETIRAcetam TAB [Keppra Tab] 500 mg PO BID clonazePAM [Clonazepam] 0.5 mg PO BID Sertraline [Zoloft] 25 mg PO DAILY Potassium Chloride [Klor-Con M20] 20 meq PO BID hydroCHLOROthiazide [Hydrochlorothiazide] 25 mg PO DAILY Lisinopril [Zestril] 40 mg PO DAILY Discharge Plan - Discharge Data Disposition: Disch To Home/Self Care Condition at Discharge: Stable Discharge Diet: advance to your usual diet Activity: resume usual activities as tolerated Hygiene: no restrictions Contact your physician if you experience:: Nausea/Vomiting - Discharge Medications New Pantoprazole Tab [Protonix Tab] 40 mg PO BID #60 tablet Polyethylene Glycol Powder [Miralax] 17 gm PO BID 30 Days Potassium Chloride Cap/Tab [K Dur] 40 meq PO BID #120 tablet Continue ARIPiprazole [Abilify] 7.5 mg PO BEDTIME traZODone [Desyrel] 150 mg PO BEDTIME levETIRAcetam TAB [Keppra Tab] 500 mg PO BID clonazePAM [Clonazepam] 0.5 mg PO BID Sertraline [Zoloft] 25 mg PO DAILY Lisinopril [Zestril] 40 mg PO DAILY Discontinued Potassium Chloride [Klor-Con M20] 20 meq PO BID hydroCHLOROthiazide [Hydrochlorothiazide] 25 mg PO DAILY - Follow Up or Referral - Forms/Instructions Exam - Constitutional Vitals: Period Temp Pulse Resp BP Sys/Richardson Pulse Ox Last 24 Hr 97.2 F-98.5 F 57-73 18-22 124-168/72-96 100-100 General appearance: no acute distress - Head Head exam: Present: normal inspection, normocephalic, atraumatic - Respiratory Respiratory exam: Present: clear to auscultation bilaterally - Cardiovascular Cardiovascular exam: Present: regular rate and rhythm - GI/Abdominal GI/Abdominal exam: Present: normal bowel sounds, soft - Extremities Exam Extremities exam: Absent: edema - Neurological Exam Neurological exam: Present: alert, oriented X3 - Psychiatric Psychiatric exam: Present: normal affect, normal mood - Skin Skin exam: Present: normal color, warm Discharge Results Labs on day of discharge: Labs from last 24 hours 03/27/16 04:56 Sodium 152 H Potassium 2.7 L Chloride 114 H Carbon Dioxide 27 Anion Gap 13.7 BUN 5 L Creatinine 1.10 H GFR Calculation 76 BUN/Creatinine Ratio 4.00 L Glucose 90 Calculated Osmolality 297.7 Calcium 8.0 L Magnesium 2.1 DS: Provider Date of admission: 03/25/16 03:14 Primary care physician: Mc Bell DO Attending physician on admission: Kaela Pimentel MD Consults: 03/25/16 05:22 Consult to Pharmacy [CONS] Routine Reason for Pharmacy Consult: Adjust Meds Renal Funct Discharging clinician: Kaela Pimentel MD Expected date of discharge: 03/27/16
[2016-03-27] MEDS: POTASSIUM CHLORIDE RIDER 10 MEQ in PREMIX 1 EACH IV SCH ×4 (10:16→13:34)
[2016-03-27 11:56] VITALS: BP 157/85
--- NOTE | 2016-03-27 13:11 | Physician Query Form ---
CLICK EDIT DOCUMENT TO SELECT QUERY ANSWER --> OK --> SIGN Viktoriya Stevens RN, CCDS Certified Clinical Community Development Manager Director of Clinical Documentation (w) [phone] (f) [phone] [email or web address]: Make your selection(s) from the choices in EACH section by typing an "x" and enter comments in the comment section. Please use your independent medical judgment in providing your response. This request does not imply that any particular answer is desired or expected. CLINICAL INDICATORS: (Providers should not edit this section) Patient admitted with gastroenteritis x 3 weeks with intractable n/v, chronic hypokalemia and dehydration, Cr 1.4 on admission with return to 1.1 within two days with IV hydration, GFR from 57 with return to 76 Clarify which of the following most accurately represents the patient's renal status: ( x) Acute kidney injury (non-traumatic) ( ) Acute renal failure ( ) Acute renal failure with underlying Chronic Kidney Disease (CKD) - please provide stage below ( ) CKD only - please provide stage below ( ) Other, please specify: ( ) Clinically unable to determine Chronic Kidney Disease Stages Source: National Kid[employer] ( ) Stage I (eGFR > or = 90) ( ) Stage II (eGFR 60 - 89) ( ) Stage III (eGFR 30 - 59) ( ) Stage IV (eGFR 15 - 29) ( ) Stage V (eGFR < 15 or dialysis) COMMENTS: Use of terms such as suspected, likely, or probable (associated with a specific diagnosis that is being evaluated, monitored, or treated as if it exists) are acceptable and can be restated in the discharge summary if not ruled out. MTDD
== END 2016-03-27 17:00 | disposition home or self-care (01) | DRG 684 ==
LOC: N.ED 01:23 → N.EDINP 03:14 → N.TELEN 03:31
PROVIDERS: ADMIT Family Medicine; ATTEND Family Medicine